=== PATIENT | male | born 1965 | race Caucasian/White ===

== ENCOUNTER 2016-07-28 12:21 | Emergency (ER) | payer OTHER ==
[~2016-07-28] VITALS: Ht 182.9 cm; Wt 126.0 kg
[~2016-07-28 12:21] MED LIST: Z.0.NO CURRENT MEDS
[2016-07-28 12:24] VITALS: BP 118/80; PULSE 75; RESP 16; TEMP 98.5; O2SAT 95
[2016-07-28] MEDS ORDERED: ALLO300T2 PO (12:37)
--- NOTE | 2016-07-28 12:55 | PD ---
HPI Chief Complaint: Complaint Time Seen by Provider: 12:40 Travel History International Travel<30 days: No Contact w/Intl Traveler<30days: No Traveled to known affect area: No History of Present Illness HPI This 50-year-old male is complaining of pain in his left testicle. He says the pain started on Friday. At that time it seemed to the testicle was swollen. He has not had any dysuria. He says that since Friday. The swelling went down and then today was quite uncomfortable for him again. He does not have any history of urinary tract infections. There is no history of trauma. The pain came on soon after he had moved some furniture at work. Concerned that he might have a hernia on the left side. PFSH Past Medical History Gout: Yes Tetanus Vaccination: Unknown Influenza Vaccination: No Past Surgical History Surgical History: No Previous Surgery Social History Alcohol Use: Yes (once a month) Tobacco Use: No Substance Use: No Allergies-Medications (Allergen,Severity, Reaction): Coded Allergies: No Known Allergies (Verified , 07/28/16) Reported Meds & Prescriptions Reported Meds & Active Scripts Active Lortab (Hydrocodone-Acetaminophen) 7.5-325 Mg Tab 1 Tab PO Q4H PRN Ciprofloxacin (Ciprofloxacin HCl) 500 Mg Tab 500 Mg PO BID 14 Days Reported Allopurinol 300 Mg Tab Unknown Dose PO DIRECTED PRN Review of Systems General / Constitutional: No: Fever, Chills Eyes: No: Diploplia, Blurred Vision HENT: No: Headaches, Vertigo Cardiovascular: No: Chest Pain or Discomfort, Palpitations Respiratory: No: Cough, Shortness of Breath Gastrointestinal: No: Vomiting, Diarrhea Genitourinary: No: Dysuria Musculoskeletal: No: Myalgias, Arthralgias Physical Exam Narrative GENERAL: Well-developed male SKIN: Focused skin assessment warm/dry. HEAD: Atraumatic. Normocephalic. EYES: Pupils equal and round. No scleral icterus. No injection or drainage. ENT: No nasal bleeding or discharge. Mucous membranes pink and moist. NECK: Trachea midline. No JVD. GASTROINTESTINAL: Abdomen soft, non-tender, nondistended. Hepatic and splenic margins not palpable. There is some laxity in the left inguinal canal not a definite hernia. There is tenderness along the inferior portion of the left testicle. I don't appreciate abnormal orientation of the testicle MUSCULOSKELETAL: No obvious deformities. No clubbing. No cyanosis. No edema. NEUROLOGICAL: Awake and alert. No obvious cranial nerve deficits. Motor grossly within normal limits. Normal speech. PSYCHIATRIC: Appropriate mood and affect; insight and judgment normal. Data Data Last Documented VS Vital Signs Date Time Temp Pulse Resp B/P Pulse Ox O2 Delivery O2 Flow Rate FiO2 07/28/16 15:55 98.3 91 16 114/84 98 Room Air Orders Complete Blood Count With Diff (07/28/16 12:48) Basic Metabolic Panel (Bmp) (07/28/16 12:48) Urinalysis - C+S If Indicated (07/28/16 12:48) Us Testicles W Doppler (07/28/16 12:48) Urine Culture (07/28/16 14:05) Labs Laboratory Tests Test 07/28/16 07/28/16 13:00 14:05 White Blood Count 7.0 TH/MM3 Red Blood Count 6.07 MIL/MM3 Hemoglobin 17.0 GM/DL Hematocrit 52.5 % Mean Corpuscular Volume 86.4 FL Mean Corpuscular Hemoglobin 28.0 PG Mean Corpuscular Hemoglobin 32.4 % Concent Red Cell Distribution Width 13.5 % Platelet Count 278 TH/MM3 Mean Platelet Volume 6.5 FL Neutrophils (%) (Auto) 61.3 % Lymphocytes (%) (Auto) 23.8 % Monocytes (%) (Auto) 11.4 % Eosinophils (%) (Auto) 2.1 % Basophils (%) (Auto) 1.4 % Neutrophils # (Auto) 4.3 TH/MM3 Lymphocytes # (Auto) 1.7 TH/MM3 Monocytes # (Auto) 0.8 TH/MM3 Eosinophils # (Auto) 0.1 TH/MM3 Basophils # (Auto) 0.1 TH/MM3 CBC Comment DIFF FINAL Differential Comment Sodium Level 140 MEQ/L Potassium Level 4.2 MEQ/L Chloride Level 105 MEQ/L Carbon Dioxide Level 26.9 MEQ/L Anion Gap 8 MEQ/L Blood Urea Nitrogen 15 MG/DL Creatinine 1.20 MG/DL Estimat Glomerular Filtration 64 ML/MIN Rate Random Glucose 105 MG/DL Calcium Level 8.9 MG/DL Urine Collection Type CLEAN CATCH Urine Color YELLOW Urine Turbidity CLEAR Urine pH 5.5 Urine Specific [place] 1.017 Urine Protein NEG mg/dL Urine Glucose (UA) NEG mg/dL Urine Ketones NEG mg/dL Urine Occult Blood NEG Urine Nitrite NEG Urine Bilirubin NEG Urine Leukocyte Esterase NEG Urine WBC 9-14 /hpf Urine WBC Clumps MOD Microscopic Urinalysis Comment CULTURE INDICATED MDM Medical Decision Making Medical Screen Exam Complete: Yes Emergency Medical Condition: Yes Medical Record Reviewed: Yes Differential Diagnosis Differential includes epididymitis, testicular torsion, inguinal hernia Narrative Course White count is normal. Urinalysis does show 9-14 white cells. Ultrasound is consistent with epididymitis Diagnosis Primary Impression: Epididymitis Scripts Ciprofloxacin 500 Mg [id number] Mg PO BID 14 Days Ref 0 Prov:Patricio Holland MD 07/28/16 Disposition: DISCHARGE HOME Condition: Stable Patricio Holland MD July 28, 2016 12:54
[2016-07-28 13:14] LABS: AUTOMATED NEUTROPHIL # 4.3 TH/MM3 (1.8-7.7); BASOPHIL # 0.1 TH/MM3 (0-0.2); BASOPHIL % 1.4 % (0.0-2.0); EOSINOPHIL # 0.1 TH/MM3 (0-0.4); EOSINOPHIL % 2.1 % (0.0-4.0); HEMATOCRIT 52.5 % (39.0-51.0); HEMO FLAGS DIFF FINAL; LYMPH % 23.8 % (9.0-44.0); LYMPHOCYTE # 1.7 TH/MM3 (1.0-4.8); MEAN CELL VOLUME 86.4 FL (80.0-100.0); MEAN CORPUSCULAR HGB CONC 32.4 % (32.0-36.0); MONO % 11.4 % (0.0-8.0); NEUT % 61.3 % (16.0-70.0); PLATELET COUNT 278 TH/MM3 (150-450); RED BLOOD COUNT 6.07 MIL/MM3 (4.50-5.90); RED CELL DISTRIBUTION WIDTH 13.5 % (11.6-17.2)
[2016-07-28 13:16] LABS: POTASSIUM 4.2 MEQ/L (3.5-5.1)
[2016-07-28 13:19] LABS: BICARBONATE 26.9 MEQ/L (21.0-32.0)
[2016-07-28 14:14] LABS: BLOOD, URINE NEG (NEG); GLUCOSE,URINE NEG (NEG); KETONE, URINE NEG (NEG); NITRITE,URINE NEG (NEG); PH, URINE 5.5 (5.0-8.5)
[2016-07-28 14:16] LABS: METHOD OF COLLECTION CLEAN CATCH; URINE COLOR YELLOW (YELLW/STRAW)
[2016-07-28 14:21] LABS: COMMENT (UR) CULTURE INDICATED; CULTURE IF INDICATED CULTURE INDICATED
[2016-07-28] MEDS ORDERED: CIPR500T2 PO (15:13)
[2016-07-28] MEDS ORDERED: HYDR-3534 PO (15:13)
[2016-07-28 15:55] VITALS: BP 114/84; PULSE 91; RESP 16; TEMP 98.3; O2SAT 98
[2016-07-28] MEDS ORDERED: LEVOFLOXACIN 750 MG TAB PO ONE (16:15)
--- NOTE | 2016-07-28 16:22 | RADHPO ---
EXAM DATE/TIME: 07/28/2016 14:28 [facility] COMPARISON: No previous studies available for comparison. INDICATIONS : Left scrotal pain and swelling. MEDICAL HISTORY : Testicular pain. Gout. SURGICAL HISTORY : None. ENCOUNTER: Initial ACUITY: 2 days PAIN SCORE: 5/10 LOCATION: Bilateral scrotum. MEASUREMENTS: RIGHT TESTICLE: 4.5 x 2.6 x 2.2cm LEFT TESTICLE: 4.3 x 2.8 x 2.1cm FINDINGS: RIGHT TESTICLE: Homogeneous echotexture without intra or extratesticular mass. Blood flow is symmetric and within no rmal limits. No hydrocele or varicocele. Epididymis is within normal limits. Tiny right-sided 8 mm epididymal cyst is noted. LEFT TESTICLE: The left epididymis is enlarged and demonstrates increased vascularity suggestive of acute epididymit is. Clinical correlation is recommended. Small hydroceles noted on the left. Homogeneous echotexture without intra or extratesticular mass. Blood flow is symmetric and within normal limits. No varicoc aryan. SCROTUM: Within normal limits. CONCLUSION: 1. Enlarged vascular left epididymis suggesting acute epididymitis. Clinical correlation is recommend ed. 2. Small left-sided hydrocele. Gaston Burger MD on July 28, 2016 at 16:18 Board Certified Radiologist. This report was verified electronically.
== END 2016-07-28 16:38 | disposition home or self-care (01) ==
LOC: PHED 12:21
DX: N45.1 Epididymitis (principal); A48.8 Other specified bacterial diseases
CPT/HCPCS: 76870; 80048; 81001; 85025; 87077; 87086; 87186; 93975